=== PATIENT | male | born 1995 | race Caucasian/White ===

== ENCOUNTER 2025-01-20 16:47 | Emergency (ER) | payer SELFPAY ==
[~2025-01-20] VITALS: Ht 165.1 cm; Wt 54.0 kg
[2025-01-20 16:53] VITALS: O2SAT 100
[2025-01-20 16:58] VITALS: BP 109/73; PULSE 92; RESP 14; TEMP 37; O2SAT 96
[2025-01-20 17:22] LABS: BASOPHILS % 0.6 % (0.0-2.0); EOSINOPHILS % 1.7 % (0.0-5.0); HEMATOCRIT. 37.9 % (42.0-52.0); HEMOGLOBIN. 12.1 g/dL (14.0-18.0); LYMPHOCYTES % 16.1 % (20.0-50.0); MEAN PLATELET VOLUME 7.6 fl (7.4-10.4); MONOCYTES % 7.0 % (2.0-8.0); NEUTROPHILS % 74.6 % (40.0-76.0); PLATELET 362 x1000/uL (130-400); RED BLOOD CELL COUNT 5.25 mill/uL (4.7-6.1); RED CELL DISTRIBUTION WIDTH 19.7 % (11.6-14.6)
[2025-01-20 17:33] LABS: CREATININE 0.7 mg/dL (0.6-1.3)
[2025-01-20 17:34] LABS: UREA NITROGEN BLOOD 14 mg/dL (9-23)
[2025-01-20 17:35] LABS: TROPONIN I HIGH SENSITIVITY < 4 ng/L (3.0-53)
[2025-01-20 17:46] LABS: ASPARTATE AMINOTRANSFERASE 19 IU/L (<34); BILIRUBIN DIRECT 0.4 mg/dL (<=3.0); BILIRUBIN TOTAL 1.2 mg/dL (0.1-1.0); PROTEIN TOTAL 7.5 g/dL (6.0-8.3)
== END 2025-01-20 18:57 | disposition left against medical advice (07) ==
LOC: ER 16:47
DX: R06.02 Shortness of breath (principal); R07.9 Chest pain, unspecified; Z53.21 Procedure and treatment not carried out due to patient leaving prior to being seen by health care provider; Z79.899 Other long term (current) drug therapy
CPT/HCPCS: 36415; 71045; 80048; 80076; 83735; 84484; 85025; 93005